=== PATIENT | male | born 1985 | race Caucasian/White ===

== ENCOUNTER 2018-06-19 18:34 | Emergency (ER) | payer OTHER ==
[~2018-06-19] VITALS: Ht 165.1 cm; Wt 77.1 kg
[2018-06-19 19:21] VITALS: BP 126/77
--- NOTE | 2018-06-19 19:21 | NUR ---
PT AMBULATORY TO ER LOBBY W/ STEADY GAIT IN STABLE CONDITION.
--- NOTE | 2018-06-19 22:24 | NUR ---
PT AMBULATED TO BED 1
--- NOTE | 2018-06-19 22:24 | NUR ---
PT PRESENTS TO ED WITH RIGHT UPPER JAW TOOTH PAIN X1 DAY. VSS. AFEBRILE. A&OX4. POSITIONED IN BED FOR COMFORT. ER MD AWARE. CONTINUE TO MONITOR.
[2018-06-19 22:40] VITALS: BP 132/68
--- NOTE | 2018-06-19 22:40 | NUR ---
Patient discharged with v/s stable. Written and verbal after care instructions given and explained. Patient alert, oriented and verbalized understanding of instructions. Ambulatory with steady gait. All questions addressed prior to discharge. ID band removed. Patient advised to follow up with PMD. Rx of Amoxicillin and Ibuprofen given. Patient educated on indication of medication including possible reaction and side effects. Opportunity to ask questions provided and answered.
== END 2018-06-19 22:40 | disposition home or self-care (01) ==
LOC: MED 18:34
DX: K04.7 Periapical abscess without sinus (principal)
CPT/HCPCS: 99283